=== PATIENT | male | born 1945 | race Caucasian/White ===

== ENCOUNTER → 2018-05-03 | Outpatient (CLI) | payer MEDICARE, OTHER ==
--- NOTE | 2018-05-03 12:17 | RADIOLOGY REPORT (SQ) ---
EXAM DESCRIPTION: CHEST 2 VIEWS COMPLETED DATE/TIME: 05/03/2018 11:43 am REASON FOR STUDY: COUGH (R05) COMPARISON: None. EXAM PARAMETERS: NUMBER OF VIEWS: two views TECHNIQUE: Digital Frontal and Lateral radiographic views of the chest acquired. RADIATION DOSE: NA LIMITATIONS: none FINDINGS: LUNGS AND PLEURA: Low lung volumes with mild increased interstitial markings. No acute in filtrates. No pleural effusion. No pneumothorax. MEDIASTINUM AND HILAR STRUCTURES: No masses or contour abnormalities. HEART AND VASCULAR STRUCTURES: Heart normal size. No evidence for failure. BONES: No acute findings. HARDWARE: None in the chest. OTHER: No other significant finding. IMPRESSION: No acute changes TECHNICAL DOCUMENTATION: JOB ID: [id number] [employer]- All Rights Reserved Reading location - IP/workstation name: [email or web address]
== END ==
LOC: RAD 11:24
PROVIDERS: ATTEND Physician Assistant
DX: R05 Cough (principal)
CPT/HCPCS: 71046

== ENCOUNTER → 2019-01-30 | Outpatient (CLI) | payer MEDICARE, OTHER ==
--- NOTE | 2019-01-30 15:53 | RADIOLOGY REPORT (SQ) ---
EXAM DESCRIPTION: MRI RT UPPER JOINT WITHOUT COMPLETED DATE/TIME: 01/30/2019 11:11 am REASON FOR STUDY: PAIN IN R SHOULDER M25.531 PAIN IN RIGHT WRIST COMPARISON: 2012 TECHNIQUE: Right shoulder images acquired and stored on PACS. Multiplanar imaging to include fat sen sitive sequences such as T1, water sensitive sequences such as FST2/STIR, cartilage sensitive sequenc es such as FSPD/gradient-echo sequences. LIMITATIONS: None. FINDINGS: BONE MARROW AND CORTEX: No worrisome bone lesions or marrow replacement. No occult fractur es. JOINT OR BURSAL EFFUSION: No significant joint or bursal fluid. No suggestion of loose bodies. GLENO-HUMERAL ARTICULATION: Relatively denuded inferior glenoid hyaline cartilage with subchondral cy sts. No subluxation or dislocation. ACROMION AND AC JOINT: Moderate to marked hypertrophic predominantly dorsal degenerative overgrowth . No large acromial spurs. Subacromial space is relatively preserved. ROTATOR CUFF AND INTERVAL: Tendinosis. Mild areas of partial intrasubstance tear distally along the supraspinatus. Teres fatty atrophy is present. LABRUM AND BICEPS LABRAL COMPLEX: Previously noted significant undercutting of the labrum is not de monstrated on today's study. Biceps tendon is in normal location and without evidence of tear. REMAINDER OF LABRUM AND IGHL : Thickened inferior capsular structures possibly related to adhesive ca psulitis. PERIARTICULAR AND ADJACENT SOFT TISSUES: No masses or abnormal nodes. OTHER: No other significant finding. IMPRESSION: 1. Cuff tendinosis and partial tear. 2. AC and glenohumeral arthropathy. 3. Other findings as above. TECHNICAL DOCUMENTATION: JOB ID: [id number]- All Rights Reserved Reading location - IP/workstation name: [email or web address]
== END ==
LOC: RAD 10:20
PROVIDERS: ATTEND Orthopaedic Surgery Sports Medicine
DX: M75.111 Incomplete rotator cuff tear or rupture of right shoulder, not specified as traumatic (principal); M25.511 Pain in right shoulder

== ENCOUNTER → 2019-04-21 | Outpatient (CLI) | payer MEDICARE, OTHER ==
--- NOTE | 2019-04-21 09:41 | RADIOLOGY REPORT (SQ) ---
EXAM DESCRIPTION: MRI CERVICAL SPINE WITHOUT COMPLETED DATE/TIME: 04/21/2019 7:49 am REASON FOR STUDY: CERVICALGIA (M54.2) M54.2 CERVICALGIA COMPARISON: None. TECHNIQUE: Sagittal and Axial imaging includes T1, T2, STIR and gradient echo sequences. LIMITATIONS: None. FINDINGS: ALIGNMENT: Straightening of the normal cervical lordosis, likely positional. VERTEBRAE: Intact. BONE MARROW: No evidence of marrow replacing process. Scattered chronic and acute Modic endplate tani nges at various levels. There is bony edema noted at the inferior C4 endplate. Additional mild bony edema noted at anterior inferior C6 endplate with associated osteophytosis. DISCS: Multilevel disc height loss and disc osteophyte complexes as detailed below. HARDWARE: None in the spine. CORD AND BASE OF BRAIN: Normal in size and signal intensity. SOFT TISSUES: No soft tissue masses. C1-C2: No significant spinal stenosis. C2-C3: No significant spinal canal stenosis or neural foraminal narrowing. C3-C4: Small posterior disc osteophyte complex which mildly effaces the anterior CSF column on the ri ght. No high-grade spinal canal stenosis. There mild bilateral neural foraminal narrowing secondary to facet and uncovertebral hypertrophy, right greater than left. C4-C5: Bony edema along the inferior C4 vertebral body.Disc osteophyte complex resulting in effacemen t of the anterior CSF column and mild canal stenosis. Mild bilateral neural foraminal narrowing seco ndary to facet and uncovertebral hypertrophy. C5-C6: Posterior disc osteophyte complex causing effacement of the CSF column and moderate canal sten osis measuring 8 mm in the AP dimension. There is flattening of the cord. There is mild bilateral n eural foraminal narrowing secondary to uncovertebral and facet hypertrophy, C6-C7: Bony edema noted at the anterior inferior C6 endplate with associated anterior osteophytosis. Posterior disc osteophyte complex causing effacement of the anterior CSF column and moderate canal s tenosis measuring 8 mm in AP dimension. There is flattening of the cord. Uncovertebral hypertrophy causing mild bilateral neural foraminal narrowing. C7-T1: Small posterior disc osteophyte complex without significant spinal canal or neural foraminal s tenosis. UPPER THORACIC: Incompletely imaged. No significant spinal stenosis or exit foraminal stenosis. OTHER: No other significant finding. IMPRESSION: 1. Bony edema along the inferior C4 vertebral body and anterior inferior C6 vertebral b saqib, likely degenerative. No discrete fracture identified. 2. Multilevel degenerative changes with disc osteophyte complexes greatest at C5-6 and C6-7 resultin g in moderate canal stenosis. The canal measures approximately 8 mm in AP diameter at these levels. 3. Mild multilevel neural foraminal narrowing secondary to facet and uncovertebral changes as above. TECHNICAL DOCUMENTATION: JOB ID: [id number] [employer]- All Rights Reserved Reading location - IP/workstation name: [email or web address]
== END ==
LOC: RAD 06:42
PROVIDERS: ATTEND Orthopaedic Surgery Sports Medicine
DX: M50.823 Other cervical disc disorders at C6-C7 level (principal); M25.78 Osteophyte, vertebrae
CPT/HCPCS: 72141

== ENCOUNTER → 2020-02-09 | Outpatient (CLI) | payer MEDICARE, OTHER ==
--- NOTE | 2020-02-09 09:41 | RADIOLOGY REPORT (SQ) ---
EXAM DESCRIPTION: CERV SP 3 VIEW OR LESS IMAGES COMPLETED DATE/TIME: 02/09/2020 9:22 am REASON FOR STUDY: CERVICAL RADICULOPATHY COMPARISON: None. TECHNIQUE: Lateral flexion and extension radiographs of the spine. NUMBER OF VIEWS: Two views. LIMITATIONS: None. FINDINGS: Minimal anterior translation of C3 on C4 in flexion. Prior fusion from C4 through C7. OTHER: No other significant finding. IMPRESSION: Minimal anterior translation of C3 on C4 in flexion. TECHNICAL DOCUMENTATION: JOB ID: [id number] 2010 [employer]- All Rights Reserved Reading location - IP/workstation name: [email or web address]
== END ==
LOC: RAD 09:01
PROVIDERS: ATTEND Specialist
DX: M54.12 Radiculopathy, cervical region (principal)
CPT/HCPCS: 72040

== ENCOUNTER → 2020-03-19 | Outpatient (CLI) | payer MEDICARE, OTHER ==
--- NOTE | 2020-03-19 10:58 | RADIOLOGY REPORT (SQ) ---
EXAM DESCRIPTION: CERV SP 3 VIEW OR LESS IMAGES COMPLETED DATE/TIME: 03/19/2020 9:09 am REASON FOR STUDY: CERVICAL RADICULOPATHY COMPARISON: 02/09/2020. NUMBER OF VIEWS: Two views. TECHNIQUE: Lateral flexion and extension views of the cervical spine were obtained. LIMITATIONS: None. FINDINGS: MINERALIZATION: Normal. ALIGNMENT: 1 to 2 mm anterior subluxation of C3 relative to C4 with flexion. VERTEBRAE: The cervical vertebral body heights are preserved. There is no fracture. DISCS: Status post discectomies at C4-C5, C5-C6 and C6-C7. HARDWARE: Status post ACDF from C4-C7. SOFT TISSUES: No gross abnormality. OTHER: No other findings. IMPRESSION: 1-2 mm anterior subluxation of C3 relative to C4 with flexion. TECHNICAL DOCUMENTATION: JOB ID: [id number] 2010 [employer]- All Rights Reserved Reading location - IP/workstation name: [email or web address]
== END ==
LOC: RAD 09:00
PROVIDERS: ATTEND Specialist
DX: M54.12 Radiculopathy, cervical region (principal)
CPT/HCPCS: 72040